=== PATIENT | male | born 1980 ===

== ENCOUNTER → 2017-04-17 | Emergency (ER) | payer OTHER ==
[~2017-04-17] VITALS: Ht 170.2 cm; Wt 0.5 kg
[~2017-04-17] MED LIST: ACIDOPHILUS1 EAC3 PO; ZANTAC150 MG PO
== END | disposition home or self-care (01) ==
LOC: ER 07:44
DX: K52.9 Noninfective gastroenteritis and colitis, unspecified (principal)